=== PATIENT | male | born 1960 | race African-American/Black ===

== ENCOUNTER 2018-09-23 09:57 | Day surgery (SDC) | payer OTHER ==
[2018-09-20 17:35] VITALS: BMI 29.1
[2018-09-23] MEDS ORDERED: PROPOFOL 20 ML ONE (11:28)
[2018-09-23 12:16] VITALS: TEMP 98.5
[2018-09-23 12:34] VITALS: BP 122/75; PULSE 61
--- NOTE | 2018-09-25 13:12 | PATH ---
Surgical Pathology Report Patient Name: IRMA ALAMO [facility]. Rec. #: [id number] /Age/Gender: 1960 (Age: 58) / M Account: [id number] Location: [facility] Taken: 09/23/2018 Received: 09/23/2018 Reported: 09/25/2018 Physicians: Deandre Guan M.D. Specimen(s) Received POLYP CECUM Clinical History Screening, change in bowel habits Postoperative diagnosis: Polyp, diverticulosis Final Diagnosis CECUM, POLYP, BIOPSY: TUBULAR ADENOMA. Electronically Signed Ashlee Buckner M.D. Gross Description Received in formalin, labeled "polyp cecum" is a sequeira, irregular portion of soft tissue measuring 0.3 cm. in greatest dimension. The specimen is submitted in toto in one cassette. /09/23/201809/23/2018
== END 2018-09-23 12:40 | disposition home or self-care (01) ==
LOC: FASU-ENDO 09:57
PROVIDERS: ATTEND Internal Medicine Gastroenterology
PROC: 0DBH8ZX Excision of Cecum, Via Natural or Artificial Opening Endoscopic, Diagnostic (ICD-10-PCS; principal; 2018-09-23 11:47)
DX: D12.0 Benign neoplasm of cecum (principal); K59.00 Constipation, unspecified; K57.30 Diverticulosis of large intestine without perforation or abscess without bleeding
CPT/HCPCS: 88305-TC

== ENCOUNTER 2018-12-01 00:58 | Emergency (ER) | payer OTHER ==
[2018-12-01 01:30] VITALS: TEMP 99; BMI 28.2
--- NOTE | 2018-12-01 01:59 | PDOC ---
History of Present Illness - General Chief Complaint: Cold Symptoms Stated Complaint: COUGH Time Seen by Provider: 12/01/18 01:45 History Source: Patient Exam Limitations: No Limitations - History of Present Illness Initial Comments: 12/01/18 01:54 58 yo male no sig pmh, presents to the ED for 1 week of non productive cough and chills. Pt states his woke him up at night because he was coughing to much and took him to the ER. 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 Denies recent travel, sick contacts, nasal congestion, sinus pain, LAWRENCE, ear pain, sore throat, SOB, CP, abdominal pain. Pt tried Nyquill last few nights with some relief however last night did not. Past History - Past Medical History Allergies/Adverse Reactions: Allergies Allergy/AdvReac Type Severity Reaction Status Date / Time No Known Drug Allergies Allergy Verified 12/01/18 01:29 Home Medications: Ambulatory Orders Acetaminophen with Codeine [Tylenol with Codeine #3 Tablet] 1 each PO HS PRN #5 tablet MDD 1 12/01/18 Diphenhydramine HCl [Benadryl Capsule -] 25 mg PO PRN 12/01/18 Nebulizer [Altera Nebulizer] 1 each MC DAILY #1 each 12/01/18 Sodium Chloride Inhalation [Normal Saline For Inhalation -] 3 ml IH Q6H #10 vial.neb 12/01/18 Anemia: No Asthma: No Cancer: No Cardiac Disorders: No CVA: No COPD: No CHF: No Dementia: No Diabetes: No GI Disorders: No Disorders: No HTN: No Hypercholesterolemia: No Liver Disease: No Seizures: No Thyroid Disease: No - Surgical History Abdominal Surgery: No Appendectomy: No Cardiac Surgery: No Cholecystectomy: No Lung Surgery: No Neurologic Surgery: No Orthopedic Surgery: Yes (L knee arthroscopy) - Suicide/Smoking/Psychosocial Hx Smoking Status: No Smoking History: Never smoked Have you smoked in the past 12 months: No Number of Cigarettes Smoked Daily: 0 Information on smoking cessation initiated: No Hx Alcohol Use: No Drug/Substance Use Hx: No Substance Use Type: None Hx Substance Use Treatment: No Review of Systems - Review of Systems Constitutional: No: Chills, Fever Respiratory: Yes: Cough. No: Shortness of Breath, Wheezing, Productive cough Cardiac (ROS): No: Chest Pain, Edema, Palpitations ABD/GI: No: Constipated, Diarrhea, Nausea, Vomiting : No: Burning, Dysuria, Frequency, Flank Pain Musculoskeletal: No: Back Pain Integumentary: No: Change in Color Neurological: No: Headache *Physical Exam - Vital Signs Last Vital Signs Temp Pulse Resp BP Pulse Ox 99.0 F 83 18 136/80 97 12/01/18 01:04 12/01/18 01:04 12/01/18 01:04 12/01/18 01:04 12/01/18 01:04 - Physical Exam General Appearance: Yes: Nourished, Appropriately Dressed. No: Apparent Distress HEENT: positive: EOMI, Normal ENT Inspection, Normal Voice, Hearing Grossly Normal. negative: TM Dull, TM Erythema, Excessive drooling Neck: positive: Supple. negative: Carotid bruit Respiratory/Chest: positive: Lungs Clear, Normal Breath Sounds. negative: Accessory Muscle Use, Crackles, Rales, Rhonchi, Wheezing Cardiovascular: positive: Regular Rhythm, Regular Rate, S1, S2. negative: Edema , JVD, Murmur Vascular Pulses: Dorsalis-Pedis (R): 4+, Doralis-Pedis (L): 4+ Gastrointestinal/Abdominal: positive: Flat, Soft. negative: Pulsatile Mass, Distended, Guarding, Rebound, Tenderness Musculoskeletal: positive: Normal Inspection. negative: CVA Tenderness Extremity: positive: Normal Capillary Refill, Normal Inspection, Normal Range of Motion Integumentary: positive: Normal Color, Dry, Warm Neurologic: positive: Fully Oriented, Alert, Normal Mood/Affect, Normal Response ED Treatment Course - RADIOLOGY Radiology Studies Ordered: Category Date Time Status CHEST PA & LAT [RAD] Stat Radiology 12/01/18 01:50 Ordered Medical Decision Making - Medical Decision Making 12/01/18 02:07 58 yo male no sig pmh, presents to the ED for 1 week of non productive cough and chills. Pt states his woke him up at night because he was coughing to much and took him to the ER. 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 Denies recent travel, sick contacts, nasal congestion, sinus pain, [place]WR[place], ear pain, sore throat, SOB, CP, abdominal pain. Pt tried Nyquill last few nights with some relief however last night did not. Vitals wnl DDX INLT: PNA/Bronchitis, URI, lung CA CXR pending Tyelnol with codiene for cough given will reassess and pt likely will go home with cough medicine 12/01/18 03:11 CXR shows no acute path Pt safe for DC home with PCP f/u understands plan *DC/Admit/Observation/Transfer Diagnosis at time of Disposition: Cough - Discharge Dispostion Disposition: HOME Condition at time of disposition: Stable Decision to Admit order: No - Prescriptions Prescriptions: Acetaminophen with Codeine [Tylenol with Codeine #3 Tablet] 1 each PO HS PRN #5 tablet MDD 1 PRN Reason: Cough Nebulizer [Altera Nebulizer] 1 each MC DAILY #1 each Sodium Chloride Inhalation [Normal Saline For Inhalation -] 3 ml IH Q6H #10 vial.neb - Referrals Referrals: Enma Symth MD [Primary Care Provider] - - Patient Instructions Printed Discharge Instructions: DI for Viral Upper Respiratory Infection -- Adult Additional Instructions: Please take the medication sent to your pharmacy as prescribed. See your primary doctor within the next 48 hours. Return to the ER for new or concerning symptoms including but not limited to: high fevers, chest pain, inability to eat or drink, difficulty breathing. Thank you - Post Discharge Activity
[2018-12-01] MEDS ORDERED: ACETAMINOPHEN W/ CODEINE LIQ 5 ML CUP PO ONE (02:03)
[2018-12-01] MEDS ORDERED: SODIUM CHLORIDE FOR INHALATION 3 ML VIAL.NEB IH ONE (02:03)
[2018-12-01] MEDS ORDERED: ACETAMINOPHEN W/ CODEINE LIQ 5 ML CUP ONE (02:25)
--- NOTE | 2018-12-01 02:46 | PDOC ---
Attending Attestation - Resident Resident Name: Archie Pereira - ED Attending Attestation I have performed the following: I have examined & evaluated the patient, The case was reviewed & discussed with the resident, I agree w/resident's findings & plan, Exceptions are as noted - HPI HPI: 12/01/18 02:43 58 m with no PMH presenting to ED with cough x 3 days. No F/C. No CP/SOB. Nonproductive cough. Pt states it is worse at night. Endorses nasal congestion as well. No abdominal pain/n/V/D. - Physicial Exam PE: 12/01/18 02:45 "GENERAL: Awake, alert, and fully oriented, in no acute distress. HEAD: No signs of trauma EYES: PERRLA, EOMI, sclera anicteric, conjunctiva clear ENT: Auricles normal inspection, hearing grossly normal, nares patent, oropharynx clear without exudates. Moist mucosa NECK: Nontender, no stepoffs, Normal ROM, supple, no lymphadenopathy, JVD, or masses LUNGS: Breath sounds equal, clear to auscultation bilaterally. No wheezes, and no crackles HEART: Regular rate and rhythm, normal S1 and S2, no murmurs, rubs or gallops ABDOMEN: Soft, nontender, normoactive bowel sounds. No guarding, no rebound. No masses EXTREMITIES: Normal range of motion, no edema. No clubbing or cyanosis. No cords, erythema, or tenderness NEUROLOGICAL: Cranial nerves II through XII intact. 5/5 strength and sensation in all extremities, Normal speech, normal gait, normal cerebellar function SKIN: Warm, Dry, normal turgor, no rashes or lesions noted. - Medical Decision Making 12/01/18 02:45 58 M with cough x 3 days. Clear lungs. Likely viral URI vs post-nasal drip. - CXR - saline nebs - Tylenol w/ codeine CXR clear Pt reports complete resolution of cough with saline nebs and codeine Pt is well appearing, with normal vitals. Clinically stable for DC at this time. I discussed the physical exam findings, ancillary test results and final diagnoses with the patient. I answered all of the patient's questions. The patient was satisfied with the care received and felt comfortable with the discharge plan and treatment plan. The patient agrees to follow up with the primary care physician within 24-72 hours.
[2018-12-01 03:29] VITALS: BP 127/72; PULSE 68
== END 2018-12-01 03:27 | disposition home or self-care (01) ==
LOC: JER 00:58
PROC: 3E0337Z Introduction of Electrolytic and Water Balance Substance into Peripheral Vein, Percutaneous Approach (ICD-10-PCS; principal; 2018-12-01)
DX: R05 Cough (principal)
CPT/HCPCS: 71046-TC-FY; 99281-25

== ENCOUNTER 2020-07-24 19:49 | Emergency (ER) | payer OTHER ==
[2020-07-24 19:56] VITALS: BP 123/84; PULSE 92; TEMP 98.1; BMI 28.4
== END 2020-07-24 21:41 | disposition home or self-care (01) ==
LOC: JER 19:49
DX: F41.9 Anxiety disorder, unspecified (principal)
CPT/HCPCS: 93005; 93010; 99284-25

== ENCOUNTER 2020-11-17 07:30 | Inpatient (IN) | payer OTHER ==
[2020-12-15] MEDS ORDERED: THROMBIN (BOVINE) 5,000 UNIT VIAL TP ONE ×2 (10:24→12:21)
[2020-12-15] MEDS ORDERED: BUPIVACAINE HCL/PF 0.5% (5MG/ML) 10 ML VIAL ONE (10:24)
[2020-12-15] MEDS ORDERED: fentaNYL CITRATE 250 MCG/5 ML VIAL ONE (10:53)
[2020-12-15] MEDS ORDERED: PROPOFOL 20 ML ONE ×2 (10:53→12:34)
[2020-12-15] MEDS ORDERED: MIDAZOLAM HCL 2 MG/2 ML SINGLE DOSE VIAL ONE (10:53)
[2020-12-15] MEDS ORDERED: ROCURONIUM BROMIDE 50 MG/5 ML SYRINGE ONE (10:53)
[2020-12-15] MEDS ORDERED: ACETAMINOPHEN INJECTION 100 ML IVPB ONE (10:59)
[2020-12-15] MEDS ORDERED: ceFAZolin SODIUM 1 GM VIAL IVPB ONE (11:30)
[2020-12-15] MEDS ORDERED: ePHEDrine SULFATE 50 MG/1 ML AMPULE ONE (11:34)
[2020-12-15] MEDS ORDERED: BACITRACIN 50,000 UNITS VIAL TP ONE (11:39)
[2020-12-15] MEDS ORDERED: BUPIVACAINE HCL/PF 0.5% (5MG/ML) 10 ML VIAL IJ ONE (12:33)
[2020-12-15] MEDS ORDERED: GLYCOPYRROLATE 0.2 MG/1 ML VIAL ONE (13:06)
[2020-12-15] MEDS ORDERED: NEOSTIGMINE METHYLSULFATE 0.5 MG/1 ML - 10 ML MDV ONE (13:08)
[2020-12-15] MEDS ORDERED: MINERAL OIL/PETROLATUM,WHITE 3.5 GM TUBE ONE (13:42)
[2020-12-15] MEDS ORDERED: ONDANSETRON 4 MG/2 ML VIAL ONE (13:42)
[2020-12-15] MEDS ORDERED: ACETAMINOPHEN 325 MG TABLET (FP) PO PRN (13:55)
[2020-12-15] MEDS ORDERED: ONDANSETRON 4 MG/2 ML VIAL IVPUSH PRN ×3 (13:55→14:36)
[2020-12-15] MEDS ORDERED: BISACODYL 10 MG SUPP.RECT RC PRN (13:55)
[2020-12-15] MEDS ORDERED: D5-1/2NS+20 MEQ KCL - 20 MEQ/1,000 ML INFUS.BAG IV SCH (14:00)
[2020-12-15] MEDS ORDERED: PROMETHAZINE HCL 25 MG/1 ML VIAL IVPB PRN (14:27)
[2020-12-15] MEDS: HYDROmorphone *PCA* 10MG/50ML DISP.SYRIN PCA SCH (15:00)
[2020-12-15 15:49] LABS: HEMATOCRIT 41.2 % (35.4-49); HEMOGLOBIN 13.4 GM/dL (11.7-16.9); MCHC 32.4 g/dl (32.0-35.9); MEAN CELL VOLUME 92.6 fl (80-96); MEAN PLT VOLUME 7.7 fl (7.5-11.1); PLATELET COUNT 265 10^3/uL (134-434); RBC 4.45 M/mm3 (4.00-5.60); RDW 14.6 % (11.9-15.9); WHITE BLOOD COUNT 9.2 K/mm3 (4.0-10.0)
[2020-12-15 16:08] LABS: CALCIUM 8.6 mg/dL (8.5-10.1)
[2020-12-15 16:13] LABS: CREATININE 1.3 mg/dL (0.55-1.3)
[2020-12-15] MEDS: CEFAZOLIN 1 GM/D5W 1 GM/50 ML BAG IVPB SCH (17:33)
[2020-12-15 19:18] VITALS: BMI 28.3
[2020-12-15] MEDS: LACTATED RINGERS SOLUTION 1,000 ML IV SCH (19:49)
[2020-12-15] MEDS: DOCUSATE SODIUM 100 MG CAPSULE (FP) PO SCH (23:51)
[2020-12-15] MEDS: diazePAM 5 MG TABLET PO SCH (23:51)
[2020-12-16] MEDS: CEFAZOLIN 1 GM/D5W 1 GM/50 ML BAG IVPB SCH ×2 (01:31→10:36)
[2020-12-16] MEDS: diazePAM 5 MG TABLET PO SCH ×3 (06:33→21:51)
[2020-12-16] MEDS: DOCUSATE SODIUM 100 MG CAPSULE (FP) PO SCH ×3 (06:39→21:51)
[2020-12-16] MEDS: D5-1/2NS+20 MEQ KCL - 20 MEQ/1,000 ML INFUS.BAG IV SCH (12:18)
[2020-12-16] MEDS: LACTATED RINGERS SOLUTION 1,000 ML IV SCH (17:56)
[2020-12-16] MEDS ORDERED: PCA PUMP NR ONE (18:38)
[2020-12-16] MEDS: HYDROmorphone *PCA* 10MG/50ML DISP.SYRIN PCA SCH (18:52)
[2020-12-17] MEDS: DOCUSATE SODIUM 100 MG CAPSULE (FP) PO SCH ×3 (06:56→21:44)
[2020-12-17] MEDS: diazePAM 5 MG TABLET PO SCH ×3 (06:57→21:45)
[2020-12-17] MEDS: MAGNESIUM CITRATE 300 ML BOTTLE PO ONE ×2 (12:50→12:59)
[2020-12-17] MEDS: CEPHALEXIN MONOHYDRATE 500 MG CAPSULE (UD) PO SCH ×2 (12:51→19:41)
[2020-12-17] MEDS: LACTATED RINGERS SOLUTION 1,000 ML IV SCH (14:10)
[2020-12-17 14:35] LABS: BASO % 0.4 % (0-2.0); EOS % 1.6 % (0-4.5); HEMOGLOBIN 13.7 GM/dL (11.7-16.9); LYMPH % 10.5 % (8-40); MCH 30.6 pg (25.7-33.7); MCHC 33.5 g/dl (32.0-35.9); MEAN CELL VOLUME 91.4 fl (80-96); MEAN PLT VOLUME 7.2 fl (7.5-11.1); MONO % 9.3 % (3.8-10.2); NEUT % 78.2 % (42.8-82.8); PLATELET COUNT 250 10^3/uL (134-434); RBC 4.49 M/mm3 (4.00-5.60); RDW 14.5 % (11.9-15.9); WHITE BLOOD COUNT 13.4 K/mm3 (4.0-10.0)
[2020-12-17] MEDS: D5-1/2NS+20 MEQ KCL - 20 MEQ/1,000 ML INFUS.BAG IV SCH (18:46)
[2020-12-17] MEDS ORDERED: PCA PUMP NR ONE (19:40)
[2020-12-17] MEDS: HYDROmorphone *PCA* 10MG/50ML DISP.SYRIN PCA SCH (19:41)
[2020-12-18] MEDS: CEPHALEXIN MONOHYDRATE 500 MG CAPSULE (UD) PO SCH ×4 (00:05→16:59)
[2020-12-18] MEDS: DOCUSATE SODIUM 100 MG CAPSULE (FP) PO SCH ×3 (06:15→21:36)
[2020-12-18] MEDS: diazePAM 5 MG TABLET PO SCH ×4 (06:15→21:36)
[2020-12-18] MEDS ORDERED: oxyCODONE HCL 5 MG TABLET PO PRN (07:57)
[2020-12-18] MEDS ORDERED: HYDROmorphone HCl 2 MG/ML VIAL IVPB PRN (07:58)
[2020-12-18] MEDS ORDERED: MAGNESIUM HYDROX 2400MG/30ML ORAL SUSPENSION 30 ML CUP PO ONE (09:09)
[2020-12-18] MEDS: D5-1/2NS+20 MEQ KCL - 20 MEQ/1,000 ML INFUS.BAG IV SCH (12:34)
[2020-12-19] MEDS: CEPHALEXIN MONOHYDRATE 500 MG CAPSULE (UD) PO SCH ×4 (00:05→17:28)
[2020-12-19] MEDS: diazePAM 5 MG TABLET PO SCH ×3 (06:05→22:18)
[2020-12-19] MEDS: DOCUSATE SODIUM 100 MG CAPSULE (FP) PO SCH ×3 (06:05→22:18)
[2020-12-19 08:46] LABS: BASO % 0.5 % (0-2.0); EOS % 2.3 % (0-4.5); HEMATOCRIT 37.5 % (35.4-49); HEMOGLOBIN 12.7 GM/dL (11.7-16.9); MCH 30.7 pg (25.7-33.7); MCHC 33.7 g/dl (32.0-35.9); MEAN CELL VOLUME 90.9 fl (80-96); MEAN PLT VOLUME 7.6 fl (7.5-11.1); MONO % 7.8 % (3.8-10.2); NEUT % 73.4 % (42.8-82.8); PLATELET COUNT 273 10^3/uL (134-434); RBC 4.13 M/mm3 (4.00-5.60); RDW 14.1 % (11.9-15.9); WHITE BLOOD COUNT 9.9 K/mm3 (4.0-10.0)
[2020-12-19] MEDS ORDERED: BISACODYL 5 MG TABLET.DR (FP) PO ONE (09:25)
[2020-12-19] MEDS: LACTATED RINGERS SOLUTION 1,000 ML IV SCH (17:05)
[2020-12-19] MEDS: D5-1/2NS+20 MEQ KCL - 20 MEQ/1,000 ML INFUS.BAG IV SCH (17:05)
[2020-12-20] MEDS: CEPHALEXIN MONOHYDRATE 500 MG CAPSULE (UD) PO SCH ×5 (00:43→22:05)
[2020-12-20] MEDS: DOCUSATE SODIUM 100 MG CAPSULE (FP) PO SCH ×3 (05:45→22:04)
[2020-12-20] MEDS: diazePAM 5 MG TABLET PO SCH ×3 (06:08→22:04)
[2020-12-20] MEDS ORDERED: diphenhydrAMINE HCL 25 MG CAPSULE (FP) PO ONE (06:14)
[2020-12-21] MEDS: CEPHALEXIN MONOHYDRATE 500 MG CAPSULE (UD) PO SCH ×5 (01:18→23:03)
[2020-12-21] MEDS: diazePAM 5 MG TABLET PO SCH ×3 (07:32→21:27)
[2020-12-21] MEDS: DOCUSATE SODIUM 100 MG CAPSULE (FP) PO SCH ×3 (07:35→21:27)
[2020-12-21] MEDS: D5-1/2NS+20 MEQ KCL - 20 MEQ/1,000 ML INFUS.BAG IV SCH (13:32)
[2020-12-22] MEDS: MELATONIN 5 MG TABLETS PO PRN ×2 (01:18→23:40)
[2020-12-22] MEDS: DOCUSATE SODIUM 100 MG CAPSULE (FP) PO SCH ×3 (06:05→21:30)
[2020-12-22] MEDS: CEPHALEXIN MONOHYDRATE 500 MG CAPSULE (UD) PO SCH ×4 (06:05→23:40)
[2020-12-22] MEDS: diazePAM 5 MG TABLET PO SCH ×3 (06:05→21:31)
[2020-12-22] MEDS: D5-1/2NS+20 MEQ KCL - 20 MEQ/1,000 ML INFUS.BAG IV SCH (11:57)
[2020-12-22] MEDS: LACTATED RINGERS SOLUTION 1,000 ML IV SCH (21:31)
[2020-12-23] MEDS: CEPHALEXIN MONOHYDRATE 500 MG CAPSULE (UD) PO SCH (06:33)
[2020-12-23] MEDS: diazePAM 5 MG TABLET PO SCH (06:33)
[2020-12-23] MEDS: DOCUSATE SODIUM 100 MG CAPSULE (FP) PO SCH (06:33)
[2020-12-23 10:29] VITALS: BP 106/74; PULSE 102; TEMP 98.5
== END 2020-12-23 12:36 | disposition home or self-care (01) | DRG 460 ==
LOC: J2C 12-15 04:17 → J6S 12-15 16:22
PROVIDERS: ADMIT Neurological Surgery; ATTEND Neurological Surgery
PROC: 0SG0071 Fusion of Lumbar Vertebral Joint with Autologous Tissue Substitute, Posterior Approach, Posterior Column, Open Approach (ICD-10-PCS; 2020-12-15)
PROC: 0SG3071 Fusion of Lumbosacral Joint with Autologous Tissue Substitute, Posterior Approach, Posterior Column, Open Approach (ICD-10-PCS; 2020-12-15)
PROC: 0SB20ZZ Excision of Lumbar Vertebral Disc, Open Approach (ICD-10-PCS; 2020-12-15)
PROC: 0SB40ZZ Excision of Lumbosacral Disc, Open Approach (ICD-10-PCS; 2020-12-15)
PROC: 01NB0ZZ Release Lumbar Nerve, Open Approach (ICD-10-PCS; principal; 2020-12-15 10:15)
DX: M48.061 Spinal stenosis, lumbar region without neurogenic claudication (principal); M48.07 Spinal stenosis, lumbosacral region; M47.26 Other spondylosis with radiculopathy, lumbar region; M54.5 Low back pain
CPT/HCPCS: 36415; 72100-TC-FY; 73130-TC-RT-FY; 80048; 85025; 85027; 94010; 94760; 97116-GP; 97162-GP; J0131

== ENCOUNTER 2020-12-04 21:49 | Emergency (ER) | payer OTHER ==
[2020-12-04 21:57] VITALS: TEMP 99.3; BMI 27.6
[2020-12-04 23:35] LABS: BASO % 0.8 % (0-2.0); EOS % 2.7 % (0-4.5); HEMATOCRIT 40.7 % (35.4-49); HEMOGLOBIN 13.7 GM/dL (11.7-16.9); LYMPH % 20.3 % (8-40); MCH 30.6 pg (25.7-33.7); MCHC 33.7 g/dl (32.0-35.9); MEAN CELL VOLUME 90.6 fl (80-96); MEAN PLT VOLUME 7.1 fl (7.5-11.1); MONO % 7.1 % (3.8-10.2); NEUT % 69.1 % (42.8-82.8); PLATELET COUNT 221 10^3/uL (134-434); RBC 4.49 M/mm3 (4.00-5.60); RDW 14.2 % (11.9-15.9); WHITE BLOOD COUNT 7.8 K/mm3 (4.0-10.0)
[2020-12-04 23:54] LABS: CHLORIDE 110 mmol/L (98-107); SODIUM 142 mmol/L (136-145)
[2020-12-04 23:56] LABS: MAGNESIUM 1.9 mg/dL (1.8-2.4)
[2020-12-04 23:57] LABS: BLOOD UREA NITROGEN 22.7 mg/dL (7-18); CALCIUM 8.7 mg/dL (8.5-10.1)
[2020-12-04 23:58] LABS: ALBUMIN 3.6 g/dl (3.4-5.0); ANION GAP 5 MMOL/L (8-16); CO2 28 mmol/L (21-32); GLUCOSE,RANDOM 85 mg/dL (74-106)
[2020-12-05] LABS: CREATININE 1.3 mg/dL (0.55-1.3)
[2020-12-05 00:01] LABS: SGOT/AST 14 U/L (15-37); SGPT/ALT 28 U/L (13-61)
[2020-12-05 00:02] LABS: BILIRUBIN,TOTAL 0.5 mg/dL (0.2-1); TOT PROT 7.1 g/dl (6.4-8.2)
[2020-12-05 00:03] LABS: ALK PHOS 63 U/L (45-117)
[2020-12-05 04:33] VITALS: BP 113/88; PULSE 80
== END 2020-12-05 04:33 | disposition home or self-care (01) ==
LOC: JER 21:49
DX: R20.2 Paresthesia of skin (principal); R07.9 Chest pain, unspecified
CPT/HCPCS: 36415; 70450-TC; 71045-TC-FY; 80053; 83735; 84443; 84484; 85025; 93005; 93010; 99284-25

== ENCOUNTER 2022-04-04 23:46 | Observation (INO) | payer OTHER ==
[2022-04-04 23:51] VITALS: BMI 27.2
[2022-04-05] MEDS ORDERED: LIDOCAINE 5% TOPICAL PATCH TP ONE (00:44)
[2022-04-05] MEDS ORDERED: KETOROLAC TROMETHAMINE 10 MG TABLET PO ONE ×2 (00:44→00:47)
[2022-04-05] MEDS ORDERED: LIDOCAINE 5% TOPICAL PATCH ONE (00:48)
[2022-04-05 01:24] LABS: EOS % 2.4 % (0-4.5); HEMATOCRIT 44.7 % (35.4-49); LYMPH % 16.3 % (8-40); MCHC 33.5 g/dl (32.0-35.9); MEAN CELL VOLUME 95.5 fl (80-96); MONO % 8.6 % (3.8-10.2); NEUT % 71.7 % (42.8-82.8); PLATELET COUNT 290 10^3/uL (134-434); RBC 4.68 M/mm3 (4.00-5.60); RDW 15.2 % (11.9-15.9); WHITE BLOOD COUNT 8.9 K/mm3 (4.0-10.0)
[2022-04-05] MEDS ORDERED: SODIUM CHLORIDE 0.9% 500 ML INFUS.BAG IV ONE (01:25)
[2022-04-05 01:31] LABS: INR 1.07 (0.83-1.09); PROTHROMBIN TIME (PATIENT) 12.3 SEC (9.7-13.0)
[2022-04-05 01:34] LABS: ACTIVATED PTT 32.9 SECONDS (25.2-36.5)
[2022-04-05 01:45] LABS: CALCIUM 8.8 mg/dL (8.5-10.1)
[2022-04-05 01:46] LABS: ALBUMIN 3.7 g/dl (3.4-5.0); BLOOD UREA NITROGEN 12.6 mg/dL (7-18)
[2022-04-05 01:49] LABS: CREATININE 1.3 mg/dL (0.55-1.3)
[2022-04-05 01:51] LABS: TOT PROT 6.9 g/dl (6.4-8.2)
[2022-04-05] MEDS ORDERED: ASPIRIN 81 MG CHEWABLE TABLETS PO ONE ×2 (03:03→04:08)
[2022-04-05] MEDS ORDERED: ASPIRIN 81 MG CHEWABLE TABLETS ONE ×2 (03:13→04:12)
[2022-04-05] MEDS ORDERED: ASPIRIN 81 MG CHEWABLE TABLETS PO SCH (03:42)
[2022-04-05] MEDS: ASPIRIN 81 MG CHEWABLE TABLETS PO ONE ×2 (04:20→04:33)
[2022-04-05] MEDS: ASPIRIN 81 MG CHEWABLE TABLETS PO SCH ×2 (04:47→09:14)
[2022-04-05 07:02] VITALS: TEMP 98.2
[2022-04-05 07:28] VITALS: RESP 18
[2022-04-05 08:00] LABS: CHOLESTEROL 173 mg/dL (50-200); TRIGLYCERIDES 85 mg/dL (0-150)
[2022-04-05 08:01] LABS: CALCIUM 8.2 mg/dL (8.5-10.1); LDL CHOLESTEROL (ONLY SJRH) 115 mg/dL (5-100)
[2022-04-05 08:02] LABS: ALBUMIN 3.2 g/dl (3.4-5.0); BLOOD UREA NITROGEN 12.2 mg/dL (7-18); MAGNESIUM 2.1 mg/dL (1.8-2.4)
[2022-04-05 08:03] LABS: HDL CHOLESTEROL 47 mg/dL (40-60)
[2022-04-05 08:05] LABS: CREATININE 1.1 mg/dL (0.55-1.3); PHOSPHOROUS 3.2 mg/dL (2.5-4.9); TOT PROT 6.1 g/dl (6.4-8.2)
[2022-04-05 08:06] LABS: BILIRUBIN,TOTAL 1.2 mg/dL (0.2-1)
[2022-04-05] MEDS ORDERED: TAMSULOSIN HCL 0.4 MG CAP PO SCH (08:30)
[2022-04-05] MEDS ORDERED: TAMSULOSIN HCL 0.4 MG CAP ONE (09:15)
[2022-04-05] MEDS ORDERED: ENOXAPARIN NA (PORCINE) 40 MG/0.4 ML DISP.SYRIN SQ ONE (09:16)
[2022-04-05] MEDS ORDERED: FINASTERIDE 5 MG TABLET (FP) PO SCH (10:00)
[2022-04-05] MEDS ORDERED: ENOXAPARIN NA (PORCINE) 40 MG/0.4 ML DISP.SYRIN SQ SCH (10:00)
[2022-04-05 12:44] VITALS: BP 127/76; PULSE 72
[2022-04-05] MEDS ORDERED: LIDOCAINE PATCH REMOVAL MC SCH (22:00)
== END 2022-04-05 16:05 | disposition home or self-care (01) ==
LOC: JER 23:46 → JERBED 04-05 02:54
PROVIDERS: ADMIT Family Medicine; ATTEND Internal Medicine
DX: R07.9 Chest pain, unspecified (principal); F41.9 Anxiety disorder, unspecified; G62.9 Polyneuropathy, unspecified
CPT/HCPCS: 0241U-QW; 36415; 71046-TC-FY; 80053; 80061; 83735; 84100; 84443; 84484; 85025; 85379; 85610; 85730; 93005; 93010; 93306-TC; 99285-25; G0378

== ENCOUNTER 2022-04-28 04:24 | Day surgery (SDC) | payer OTHER ==
[2022-04-27 11:46] VITALS: BMI 27.2
[2022-04-28] MEDS ORDERED: PROPOFOL 20 ML ONE ×2 (09:59→11:37)
[2022-04-28] MEDS ORDERED: MIDAZOLAM HCL 2 MG/2 ML SINGLE DOSE VIAL ONE ×2 (10:53→11:04)
[2022-04-28] MEDS ORDERED: FENTANYL CITRATE/PF 50 MCG/ML VIAL ONE (10:53)
[2022-04-28] MEDS ORDERED: ceFAZolin SODIUM 1 GM VIAL IVPB ONE (11:18)
[2022-04-28] MEDS ORDERED: ceFAZolin SODIUM 1 GM VIAL ONE (11:19)
[2022-04-28] MEDS ORDERED: LIDOCAINE 1%/EPI 1:100000 (20 ML MULTI DOSE VIAL) IJ ONE (11:24)
[2022-04-28] MEDS ORDERED: oxyCODONE HCL 5 MG TABLET PO PRN ×2 (12:00)
[2022-04-28] MEDS ORDERED: ACETAMINOPHEN 1000 MG/100 ML BAG IVPB PRN (12:00)
[2022-04-28] MEDS ORDERED: PROMETHAZINE HCL 25 MG/1 ML VIAL IVPUSH PRN (12:00)
[2022-04-28] MEDS ORDERED: LACTATED RINGERS SOLUTION 1,000 ML IV SCH (12:00)
[2022-04-28] MEDS ORDERED: ONDANSETRON 4 MG/2 ML VIAL IVPUSH PRN (12:00)
[2022-04-28 13:47] VITALS: RESP 18
[2022-04-28 14:19] VITALS: PULSE 60
[2022-04-28 16:11] VITALS: BP 130/80; TEMP 98.1
== END 2022-04-28 16:11 | disposition home or self-care (01) ==
LOC: JASU-SURG 04:24
PROVIDERS: ATTEND Surgery
PROC: 06BY0ZC Excision of Hemorrhoidal Plexus, Open Approach (ICD-10-PCS; principal; 2022-04-28 10:30)
DX: K64.2 Third degree hemorrhoids (principal); K64.8 Other hemorrhoids
CPT/HCPCS: 88304-TC; 94760